=== PATIENT | female | born 1965 | race Caucasian/White ===

== ENCOUNTER 2022-02-25 13:57 | Inpatient (IN) ==
[2022-02-25 14:42] LABS: Amphetamine Screen,Urine Negative ng/mL (Cutoff=1000); Barbiturate Screen,Urine Negative ng/mL (Cutoff=200); Benzodiazepines Screen,Urine Positive ng/mL (Cutoff=200); Cannabinoid Screen,Urine Negative ng/mL (Cutoff = 50); Cocaine Screen,Urine Negative ng/mL (Cutoff= 300); Opiate Screen,Urine Negative ng/mL (Cutoff=300); Phencyclidine Screen,Urine Negative ng/mL (Cutoff=25)
[2022-02-25 20:40] LABS: Ethanol < 10 mg/dL (Less than 10); Salicylate < 2.5 mg/dL (15.0-30.0)
[2022-02-25] MEDS ORDERED: Ondansetron ODT 4 MG TAB.RAPDIS SL PRN (21:07)
[2022-02-25] MEDS ORDERED: Naloxone 0.4 MG/ML INJ IVP PRN (21:07)
[2022-02-25] MEDS ORDERED: Melatonin 3 MG TABLET PO PRN (21:07)
[2022-02-25] MEDS: Budesonide/Formoterol 160/4.5 1 PUFF INH IH SCH (22:27)
[2022-02-25 22:32] LABS: Hematocrit 42.6 % (35.3-44.9); Hemoglobin 13.5 g/dL (11.5-15.4); Mean Corpuscular HGB Conc 31.7 g/dL (31.6-35.5); Mean Corpuscular Hemoglobin 29.5 pg (28.0-33.3); Mean Platelet Volume 9.9 fL (9.4-12.4); Platelet Count 320 K/mcL (140-400); Red Blood Count 4.58 M/mcL (3.82-4.97); Red Cell Distribution Width 15.3 % (11.5-14.5); White Blood Count 9.2 K/mcL (4.3-11.1)
[2022-02-25 22:39] LABS: BUN/Creatinine Ratio 13 (6-26); Blood Urea Nitrogen 8 mg/dL (6-20); Calcium 9.2 mg/dL (8.6-10.3); Carbon Dioxide 23 mEq/L (23-29); Chloride 105 mEq/L (98-107); Glucose 81 mg/dL (70-105); Magnesium 1.8 mg/dL (1.6-2.6); Osmolality,Calculated 287 (280-300); Phosphorous 3.4 mg/dL (2.7-4.5); Potassium 3.9 mEq/L (3.5-5.1); Sodium 140 mEq/L (136-145)
[2022-02-25] MEDS: Thiamine (B-1) 200 MG in 0.9 % Sodium Chloride 50 ML IVPB SCH (23:19)
[2022-02-26] MEDS: Aspirin Enteric Coated 81 MG Tablet PO SCH (08:05)
[2022-02-26] MEDS: amLODIPine 5 MG TABLET PO SCH (08:05)
[2022-02-26] MEDS: FLUoxetine 20 MG CAPSULE PO SCH ×3 (08:05→20:21)
[2022-02-26] MEDS: Folic Acid 1 MG TABLET PO SCH (08:05)
[2022-02-26] MEDS: Budesonide/Formoterol 160/4.5 1 PUFF INH IH SCH ×2 (08:19→22:22)
[2022-02-26] MEDS ORDERED: clonazePAM 0.5 MG TABLET PO SCH (09:00)
[2022-02-26] MEDS: Thiamine (B-1) 200 MG in 0.9 % Sodium Chloride 50 ML IVPB SCH (09:15)
[2022-02-26] MEDS: Acetaminophen 325 MG TABLET PO PRN (15:51)
[2022-02-26] MEDS: Mirtazapine 15 MG TABLET PO SCH (20:21)
[2022-02-27] MEDS: Budesonide/Formoterol 160/4.5 1 PUFF INH IH SCH ×2 (07:45→20:24)
[2022-02-27] MEDS: Folic Acid 1 MG TABLET PO SCH (09:33)
[2022-02-27] MEDS: amLODIPine 5 MG TABLET PO SCH (09:33)
[2022-02-27] MEDS: Thiamine (B-1) 200 MG in 0.9 % Sodium Chloride 50 ML IVPB SCH (09:33)
[2022-02-27] MEDS: FLUoxetine 20 MG CAPSULE PO SCH (09:33)
[2022-02-27] MEDS: Aspirin Enteric Coated 81 MG Tablet PO SCH (09:33)
[2022-02-27] MEDS: Acetaminophen 325 MG TABLET PO PRN ×2 (10:04→21:46)
[2022-02-27] MEDS: Mirtazapine 15 MG TABLET PO SCH (21:32)
[2022-02-27] MEDS: Metoprolol XL (24 HR) Succ 50 MG TAB.ER.24H PO SCH (21:48)
[2022-02-28] MEDS: Budesonide/Formoterol 160/4.5 1 PUFF INH IH SCH ×2 (07:44→20:32)
[2022-02-28] MEDS: Aspirin Enteric Coated 81 MG Tablet PO SCH (10:01)
[2022-02-28] MEDS: Folic Acid 1 MG TABLET PO SCH (10:01)
[2022-02-28] MEDS: FLUoxetine 20 MG CAPSULE PO SCH (10:01)
[2022-02-28] MEDS: Loratadine 10 MG TABLET PO SCH (10:01)
[2022-02-28] MEDS: amLODIPine 5 MG TABLET PO SCH (10:02)
[2022-02-28] MEDS: Acetaminophen 325 MG TABLET PO PRN (17:50)
[2022-02-28] MEDS: Metoprolol XL (24 HR) Succ 50 MG TAB.ER.24H PO SCH (21:36)
[2022-02-28] MEDS: Mirtazapine 15 MG TABLET PO SCH (21:37)
[2022-03-01] MEDS: Acetaminophen 325 MG TABLET PO PRN ×4 (00:18→21:53)
[2022-03-01] MEDS: Budesonide/Formoterol 160/4.5 1 PUFF INH IH SCH ×2 (07:35→21:32)
[2022-03-01] MEDS: Folic Acid 1 MG TABLET PO SCH (07:45)
[2022-03-01] MEDS: Loratadine 10 MG TABLET PO SCH (07:45)
[2022-03-01] MEDS: amLODIPine 5 MG TABLET PO SCH (07:45)
[2022-03-01] MEDS: Aspirin Enteric Coated 81 MG Tablet PO SCH (07:45)
[2022-03-01] MEDS: FLUoxetine 20 MG CAPSULE PO SCH (07:47)
[2022-03-01] MEDS: clonazePAM 0.5 MG TABLET PO SCH (21:03)
[2022-03-01] MEDS: Mirtazapine 15 MG TABLET PO SCH (21:03)
[2022-03-01] MEDS: Metoprolol XL (24 HR) Succ 50 MG TAB.ER.24H PO SCH (21:03)
[2022-03-02] MEDS: Budesonide/Formoterol 160/4.5 1 PUFF INH IH SCH ×2 (07:39→19:58)
[2022-03-02] MEDS: FLUoxetine 20 MG CAPSULE PO SCH (08:30)
[2022-03-02] MEDS: Acetaminophen 325 MG TABLET PO PRN ×2 (08:31→21:35)
[2022-03-02] MEDS: Loratadine 10 MG TABLET PO SCH (08:31)
[2022-03-02] MEDS: Aspirin Enteric Coated 81 MG Tablet PO SCH (08:31)
[2022-03-02] MEDS: Folic Acid 1 MG TABLET PO SCH (08:32)
[2022-03-02] MEDS: amLODIPine 5 MG TABLET PO SCH (08:32)
[2022-03-02] MEDS: clonazePAM 0.5 MG TABLET PO SCH ×2 (08:32→21:37)
[2022-03-02] MEDS: Metoprolol XL (24 HR) Succ 50 MG TAB.ER.24H PO SCH (21:37)
[2022-03-02] MEDS: Mirtazapine 15 MG TABLET PO SCH (21:37)
[2022-03-03] MEDS: Acetaminophen 325 MG TABLET PO PRN ×2 (05:54→13:51)
[2022-03-03] MEDS: Budesonide/Formoterol 160/4.5 1 PUFF INH IH SCH ×2 (07:46→22:32)
[2022-03-03] MEDS: FLUoxetine 20 MG CAPSULE PO SCH (09:03)
[2022-03-03] MEDS: Loratadine 10 MG TABLET PO SCH (09:03)
[2022-03-03] MEDS: Folic Acid 1 MG TABLET PO SCH (09:03)
[2022-03-03] MEDS: clonazePAM 0.5 MG TABLET PO SCH ×2 (09:03→21:05)
[2022-03-03] MEDS: Aspirin Enteric Coated 81 MG Tablet PO SCH (09:03)
[2022-03-03] MEDS: amLODIPine 5 MG TABLET PO SCH (09:03)
[2022-03-03 13:34] LABS: Influenza A PCR Negative (Negative); Influenza B PCR Negative (Negative); Resp. Syncytial Virus PCR Negative (Negative)
[2022-03-03 14:24] LABS: SARS-CoV-2 by PCR (In House) Negative (Negative)
[2022-03-03] MEDS: Metoprolol XL (24 HR) Succ 50 MG TAB.ER.24H PO SCH (21:04)
[2022-03-03] MEDS: Mirtazapine 15 MG TABLET PO SCH (21:05)
[2022-03-04] MEDS: Acetaminophen 325 MG TABLET PO PRN ×2 (02:25→16:11)
[2022-03-04] MEDS: Budesonide/Formoterol 160/4.5 1 PUFF INH IH SCH ×2 (07:28→20:47)
[2022-03-04] MEDS: amLODIPine 5 MG TABLET PO SCH (09:06)
[2022-03-04] MEDS: Loratadine 10 MG TABLET PO SCH (09:06)
[2022-03-04] MEDS: FLUoxetine 20 MG CAPSULE PO SCH (09:06)
[2022-03-04] MEDS: clonazePAM 0.5 MG TABLET PO SCH (09:06)
[2022-03-04] MEDS: Folic Acid 1 MG TABLET PO SCH (09:06)
[2022-03-04] MEDS: Aspirin Enteric Coated 81 MG Tablet PO SCH (09:06)
[2022-03-04 15:27] VITALS: BP 112/75; PULSE 63; TEMP 99.5; O2SAT 92
== END 2022-03-04 21:00 | disposition left against medical advice (07) | DRG 770 ==
LOC: EMEROOARM 13:57 → 2ANU 13:57 → SUATTDRO 21:40 → 2ANU 22:19 → SUATTDRO 03-01 13:55
PROVIDERS: ADMIT Internal Medicine; ATTEND Family Medicine